=== PATIENT | female | born 1980 | race Caucasian/White ===

== ENCOUNTER 2023-05-14 14:33 | Outpatient (CLI) | payer OTHER, SELFPAY ==
--- NOTE | ~2023-05-14 | US_ITS ---
EXAMINATION: US pelvic complete w TV DATE: 05/14/2023 15:06 INDICATION: Lost intrauterine device strings. Enlarged uterus. TECHNIQUE: Multiple transabdominal and transvaginal sonographic images of the pelvis were obtained. COMPARISON: None. FINDINGS: TRANSABDOMINAL ULTRASOUND: The uterus measures 17.3 x 11.4 x 2.6 cm. There are 10.8 cm and 4.3 cm subserosal uterine fibroids. T here is no free fluid in the pelvis. TRANSVAGINAL ULTRASOUND: The endometrial complex measures 5 mm in thickness. There is an intrauterine device in expected posit ion. The right ovary measures 2.8 x 3.7 x 2.2 cm. The left ovary measures 7.1 x 6.4 x 5.7 cm. There i s a 6.8 cm cyst with peripheral low level echoes in left ovary. IMPRESSION: 1. Intrauterine device in expected position. 2. Uterine fibroids. 3. 6.8 cm cyst with peripheral low level echoes in left ovary, likely a hemorrhagic cyst. Pelvis ultr asound is recommended in 6-12 weeks. 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 Intrauterine device in expected position. 2. Uterine fibroids. 3. 6.8 cm cyst with peripheral low level echoes in left ovary, likely a hemorrh agic cyst. Pelvis ultrasound is recommended in 6-12 weeks.
== END 2023-05-14 14:34 ==
LOC: GOSHIMG 14:37
PROVIDERS: PCP Family Medicine Sports Medicine
DX: T83.32XA Displacement of intrauterine contraceptive device, initial encounter (principal); N85.2 Hypertrophy of uterus; N83.202 Unspecified ovarian cyst, left side; D25.9 Leiomyoma of uterus, unspecified
CPT/HCPCS: 76830; 76856

== ENCOUNTER 2023-07-01 09:43 | Outpatient (CLI) | payer OTHER, SELFPAY ==
--- NOTE | ~2023-07-01 | US_ITS ---
EXAMINATION: US pelvic complete w TV DATE: 07/01/2023 10:13 INDICATION: Left ovarian cyst TECHNIQUE: Multiple transabdominal and endovaginal sonographic images of the pelvis were obtained. COMPARISON: 05/14/2023 FINDINGS: The uterus measures 17.6 x 8.7 x 8.5 cm. Again noted are subserosal fibroids of the uterus measuring up to 11.2 cm the IUD appears to be in expected position. The endometrial complex measures 8 mm. The right ovary measures 3.2 x 3.5 x 2.0 cm. The left ovary measures 7.0 x 6.5 x 5.4 cm. There is a persistent 7.0 cm cystic lesion of the left ovary. Previously described peripheral low level ech oes are not definitely identified. There is normal vascular flow in the ovaries. There is no free flu id in the pelvis. IMPRESSION: 1. Probable resolving hemorrhagic cyst of the left ovary. Reviewed, dictated and finalized at location L. 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
== END 2023-07-01 09:44 ==
LOC: GOSHIMG 09:44
DX: D25.9 Leiomyoma of uterus, unspecified (principal); N83.299 Other ovarian cyst, unspecified side; N85.2 Hypertrophy of uterus
CPT/HCPCS: 76830; 76856

== ENCOUNTER 2023-09-24 13:45 | Outpatient (CLI) | payer OTHER, SELFPAY ==
--- NOTE | ~2023-09-24 | US_ITS ---
EXAMINATION: US pelvic complete w TV DATE: 09/24/2023 14:15 INDICATION: Uterine fibroids. TECHNIQUE: Multiple transabdominal and transvaginal sonographic images of the pelvis were obtained. COMPARISON: Ultrasound 07/01/2023, 05/14/23 FINDINGS: TRANSABDOMINAL ULTRASOUND: The uterus measures 15.5 x 5.2 x 9.1 cm. There is no free fluid in the pelvis. TRANSVAGINAL ULTRASOUND: The endometrial complex is obscured. An intrauterine device is noted. There is a 10.8 cm subserosal f ibroid. There is a 3.9 cm subserosal fibroid. There is a 1.3 cm intramural fibroid. There is a 1.7 cm intramural fibroid. The right ovary measures 3.5 x 3.0 x 2.3 cm. The left ovary measures 7.4 x 6.5 x 5.6 cm. There is a 6.7 cm cyst in left ovary. There is normal vascular flow in the ovaries. IMPRESSION: 1. Uterine fibroids. 2. 6.7 cm cyst in left ovary, stable from 05/14/2023, likely benign. Pelvis ultrasound is recommended i n one year. Reviewed, dictated and finalized at location E. IMPRESSION: 1. Uterine fibroids. 2. 6.7 cm cyst in left ovary, stable from 05/14/2023, likely benign. Pelvis ultra sound is recommended in one year.
== END 2023-09-24 13:46 ==
DX: D25.1 Intramural leiomyoma of uterus (principal); D25.2 Subserosal leiomyoma of uterus; N83.292 Other ovarian cyst, left side; N85.2 Hypertrophy of uterus
CPT/HCPCS: 76830; 76856

== ENCOUNTER 2024-08-08 13:21 | Outpatient (CLI) | payer OTHER, SELFPAY ==
--- NOTE | ~2024-08-08 | US_ITS ---
EXAMINATION: US pelvic complete w TV DATE: 08/08/2024 13:51 INDICATION: leiomyoma of uterus , status post uterine artery embolization. TECHNIQUE: Multiple transabdominal and endovaginal sonographic images of the pelvis were obtained. COMPARISON: 09/24/2023. FINDINGS: Uterus: 17.2 x 8.4 x 8.5 cm. 9.5 cm and 3.3 cm fibroids Endometrial complex measures 4 mm. Right Ovary: 2.7 x 2.9 x 2.7 cm. Vascular flow is present. 2.0 cm simple cyst Left Ovary: 5.8 x 6.9 x 7.2 cm. Vascular flow is present. 6.3 cm simple ovarian cyst There is trace free fluid in the pelvis. IMPRESSION: 2 fibroids are noted, measuring 9.5 cm and 3.3 cm. Stable 6.3 cm simple ovarian cyst on the left. 2.0 simple ovarian cyst on the right. Reviewed, dictated and finalized at location K.
== END 2024-08-08 13:22 | disposition home or self-care (01) ==
PROVIDERS: PCP Student in an Organized Health Care Education/Training Program; Visit Provider Student in an Organized Health Care Education/Training Program
DX: D25.9 Leiomyoma of uterus, unspecified (principal); N83.201 Unspecified ovarian cyst, right side
CPT/HCPCS: 76830; 76856